=== PATIENT | female | born 1925 | race Caucasian/White ===

== ENCOUNTER 2017-05-11 10:47 | Observation (INO) | payer MEDICARE, OTHER ==
[~2017-05-11] VITALS: Ht 149.9 cm; Wt 93.5 kg
[~2017-05-11 10:47] MED LIST: ALENDRONATE70 MG PO; AMLODIPINE BESYL5 MG PO; ASPIRIN EC81 MG PO; BL VIT B-12500 MCG PO; BUMETANIDE1 MG PO; CALCIUM PO; CIPROFLOXACN500 MG PO; CLEOCIN150 MG PO; COUMADIN2 MG PO; DIGOXIN0.125 MG PO; DOXYCYC MONO100 M2 PO; ELIQUIS2.5 MG PO; ENALAPRIL5 MG PO; ENOXAPARIN40 MG/0.1 SC; FENOFIBRATE54 MG PO; GLIPIZIDE ER2.5 MG PO; GLIPIZIDE ER5 MG PO; GLIPIZIDE5 MG PO; LEVAQUIN500 MG PO; LISINOPRIL10 MG PO; LISINOPRIL20 M1 PO; LISINOPRIL20 MG PO; LOMOTIL2.5 MG PO; LOPRESSOR25 MG PO; METOPROL TAR25 MG PO; METOPROL TAR50 MG PO; MULTI-VITAMIN GUMMIE PO; NORCO1 TA1 PO; PANTOPRAZOLE SO40 MG PO; PRAVASTATIN SOD20 MG PO; PRAVASTATIN20 MG PO; PREDNISONE20 MG PO; PREDNISONE5 MG PO; PROAIR HFA IN; PROTONIX40 M2 PO; ULTRAM50 M1 PO; VENTOLIN HFA IN; WARFARIN1 MG PO; WARFARIN2 MG PO; XALATAN 0.005%2.5 ML OU; ZITHROMAX250 MG PO; ZOFRAN ODT4 MG PO; ZPAK PO
--- NOTE | 2017-05-11 11:06 | NUR ---
PT TO ROOM 14 VIA WC.
[2017-05-11 11:48] LABS: HEMATOCRIT 34.4 % (37.0-47.0); HEMOGLOBIN 10.3 g/dl (12.0-16.0); IMMATURE GRANULOCYTES 0.6 % (0.0-1.0); MEAN CELL VOLUME 77.8 fL CALC (80.0-100.0); MEAN CORPUSCULAR HGB 23.3 pG CALC (26.0-32.0); MEAN CORPUSCULAR HGB CONC 29.9 g/L CALC (32.0-36.0); NEUT# 7.63 thou/uL (2.00-7.15); RED BLOOD COUNT 4.42 mill/uL (4.20-5.60); RED CELL DISTRI WIDTH 18.8 % (11.5-15.5)
--- NOTE | 2017-05-11 12:00 | NUR ---
IV FLUIDS VIA IV SITE HEALTHY ADVISED OF WAIT TIME FOR TEST RESULTS
[2017-05-11] MEDS ORDERED: DIGOXIN0.125 MG PO (12:01)
[2017-05-11 12:05] LABS: ALBUMIN 4.3 g/dL (3.2-5.0); ALKALINE PHOSPHATASE 97 u/l (38-126); AMYLASE < 30 u/l (30-110); ANION GAP 19 (6-22 (CALC)); BILIRUBIN, TOTAL 0.6 mg/dL (0.0-1.4); BUN 18 mg/dL (8-23); BUN/CREATININE RATIO 23 (12-20 (CALC)); CALCIUM 9.8 mg/dL (8.4-10.2); CARBON DIOXIDE 30 mmol/l (22-30); CHLORIDE 95 mmol/l (95-108); CREATININE 0.8 mg/dL (0.5-1.0); GFR > 60 ML/MIN (>=60 (CALC)); GFR FOR AFR.AMER. > 60 ML/MIN (>=60 (CALC)); GLUCOSE 102 mg/dL (82-115); LIPASE 37 u/l (23-300); POTASSIUM 4.3 mmol/l (3.5-5.1); SGOT/AST 22 u/l (9-36); SGPT/ALT 19 u/l (11-66); SODIUM 139 mmol/l (137-146)
[2017-05-11 12:17] LABS: MYOGLOBIN 138 ng/mL (0 - 62)
--- NOTE | 2017-05-11 13:00 | NUR ---
IV FLUIDS COMPLETED NO N/V IV SITE HEALTHY CALL LIGHT PROVIDED
--- NOTE | 2017-05-11 13:34 | NUR ---
SBAR PRINTED TO FLOOR
--- NOTE | 2017-05-11 13:35 | NUR ---
PT TO ROOM 2 AWAITING ADMIT TO [facility]. FAMILY AT BEDSIDE PT IS STABLE IV SITE HEALTHY.
--- NOTE | 2017-05-11 14:15 | NUR ---
REPORT PROVIDED TO DAYTON SEN. PT TO MEDSUR IN STABLE CONDITION. IV SITE HEALTHY. BP 174/83 DAYTON SEN ADVISED PT HAD NOT TAKEN AM BP MED DUE TO NAUSEA.
--- NOTE | 2017-05-11 15:00 | NUR ---
PT.ARRIVED TO FLOOR ACCOMPANIED BY ED NURSE VIA STRETCHER. V/S ARE BEING ASSESSED. B/P IS ELEVATED, WILL ASK FOR ORDER FOR BP MED. PT.IS BEING ORIENTED TO ROOM,CALL SYSTEM, LIGHTS. SON IS AT BEDSIDE. CALL LIGHT IS W/IN PT.REACH AND SHE HAS BEEN INSTRUCTED TO CALL IF ANY NEEDS ARISE
[2017-05-11 16:20] VITALS: BP 174/85
--- NOTE | 2017-05-11 16:40 | NUR ---
PT.MEDICATED ORDERS PROVIDE. IV FLUIDS ARE RUNNING AT THIS TIME. PT.DENIES ANY OTHER NEEDS. CALL LIGHT AT SIDE, BED IN LOWEST POSITION
[2017-05-11 16:50] VITALS: BP 159/86
[2017-05-11 19:20] VITALS: BP 142/60
--- NOTE | 2017-05-11 20:43 | NUR ---
X2 VISITORS IN PT ROOM, PT IS A/O X2, VERY PLEASANT AND TALKACTIVE, DENIES PAIN, ASSISTED TO BSC, HAD A SMALL BM, LOOSE, WILHELM BROWN SOFT, ON 3LPM O2 VIA NC, OXYGEN DEPENDENT AT HOME AT 3LPM, SLOW STEADY GAIT NOTED, RESP EVEN AND UNLABORED, NS AT 80 ML/HR INFUSING WITHOU DIFFICULTY, EXPLAINED MED SCHEDULE AND PLAN OF CARE, SAFETY MEASURES REINFORCED, VOICES UNDERSTANDING, IV SITE IF FREE OF S/S OF INFILTRATION NO PAIN TO TOUCH, CALL ENRIQUEZ, BS, BST, FRESH WATER WITHIN REACH. WILL MONITOR CLOSELY.
--- NOTE | 2017-05-11 22:13 | NUR ---
FINGER STICK ACCU 80, PROVIDED A SNACK, ATE 100%, DENIES NEEDS, RESTING IN BED QUIETLY, AROUSES TO ANY STIMULI, NO N/V REPORTED OR PAIN. WILL MONITOR CLOSELY.
[2017-05-11 23:14] LABS: URINE BILIRUBIN - DIPSTICK NEGATIVE (NEGATIVE); URINE BLOOD DIPSTICK NEGATIVE (NEGATIVE); URINE COLOR YELLOW; URINE GLUCOSE - DIPSTICK NEGATIVE (NEGATIVE); URINE KETONE 15 mg/dL (NEGATIVE); URINE LEUK ESTERASE NEGATIVE (NEGATIVE); URINE NITRITE - DIPSTICK NEGATIVE (Negative); URINE PROTEIN - DIPSTICK NEGATIVE (NEG-TRACE); URINE UROBILINOGEN - DIPSTICK 0.2 E.U./dL (0.2)
[2017-05-11 23:15] LABS: URINE CLARITY CLEAR
[2017-05-11 23:50] VITALS: BP 155/92
[2017-05-12] VITALS (7 sets, daily range): BP systolic 139–170; BP diastolic 69–94
--- NOTE | 2017-05-12 00:15 | NUR ---
PT APPEARS TO BE SLEEPING WITH EYES CLOSED, AROUSES TO ANY STIMULI, RESP ARE EVEN AND UNLABORED ON 3LPM OF OXYGEN, DENIES NEEDS OR PAIN, ORAL HYDRATION PROVIDED, NO N/V NOTED, IVF INFUSING TO PATENT IV SITE, FREE OF S/S OF INFILTRATION, VSS, AFEBRILE, TELE IN PLACE, SAFETY MEASURES REINFORCED, WILL CONTINUE TO MONITOR CLOSELY.
--- NOTE | 2017-05-12 04:47 | NUR ---
A-FIB 64 ON MONITOR PER ER MONITORING, VSS, RESP ARE EVEN AND UNLABORED ON 3LPM O2 VIA NC, DENIES ABDOMINAL PAIN OR OTHER DISCOMFORT, NO BM'S NOTED, OFFERED DIGITAL ARCHIVIST TO BSC, DENIES NEEDS, NS INFUSING WITHOUT PROBLEM, IV IS PATENT, ENCOURAGED TO CALL IF NEEDED, CALL ENRIQUEZ AT REACH.
--- NOTE | 2017-05-12 05:25 | NUR ---
PT C/O NAUSEA, NO ORDERS FOR ZOFRAN, WILL NOTIFY DR. LADD, MANUAL BP 170/72 WILL MEDICATE WITH APRESOLINE PER EMAR ORDERS.
--- NOTE | 2017-05-12 06:45 | NUR ---
MEDICATED PT FOR NAUSEAS, STATES "I FEEL SICK TO MY STOMACH." NOW C/O LEFT SHOULDER PAIN, MOANING AND GUARDING NOTED, STATES "IT HURTS SO BAD." NO ORDERS FOR PAIN, WILL NOTIFY DR. LADD. WILL CONTINUE TO REASSESS.
--- NOTE | 2017-05-12 06:50 | NUR ---
NOTIFIED DR LADD OF NEED FOR PAIN MED, PT GUARDING AND MOANING AT THIS TIME, LEFT SHOULDER PAIN, RATES IT AT 12/21, FACIAL GRIMACE NOTED.
--- NOTE | 2017-05-12 07:00 | NUR ---
REPORT RECEIVED FROM DAYTON MORRISON; PT AROUSED EASILY TO VERBAL STIMULI; PT C/O SHOULDER WILL MEDICATE; CALL ENRIQUEZ WITHIN REACH; WILL CONTINUE TO MONITOR.
--- NOTE | 2017-05-12 08:00 | NUR ---
PT TOLERATING BREAKFAST WELL; MEDICATED ORDERED FOR C/O LT SHOULDER PAIN 12/21; IVF INFUSING WITHOUT DIFFICULTY; TELE MONITOR IN PLACE; CALL ENRIQUEZ WITHIN REACH; WILL CONTINUE TO MONITOR.
--- NOTE | 2017-05-12 11:00 | NUR ---
FAMILY IN TO VISIT PT
--- NOTE | 2017-05-12 12:00 | NUR ---
DR. LADD IN TO SEE PT; PLAN OF CARE DISCUSSED
[2017-05-12 12:02] LABS: HEMATOCRIT 31.5 % (37.0-47.0); HEMOGLOBIN 9.4 g/dl (12.0-16.0); IMMATURE GRANULOCYTES 0.8 % (0.0-1.0); MEAN CELL VOLUME 77.8 fL CALC (80.0-100.0); MEAN CORPUSCULAR HGB 23.2 pG CALC (26.0-32.0); MEAN CORPUSCULAR HGB CONC 29.8 g/L CALC (32.0-36.0); NEUT# 6.62 thou/uL (2.00-7.15); RED BLOOD COUNT 4.05 mill/uL (4.20-5.60); RED CELL DISTRI WIDTH 18.6 % (11.5-15.5)
[2017-05-12 12:22] LABS: ANION GAP 14 (6-22 (CALC)); BUN 13 mg/dL (8-23); BUN/CREATININE RATIO 21 (12-20 (CALC)); CALCIUM 8.7 mg/dL (8.4-10.2); CARBON DIOXIDE 27 mmol/l (22-30); CHLORIDE 98 mmol/l (95-108); CREATININE 0.6 mg/dL (0.5-1.0); GFR > 60 ML/MIN (>=60 (CALC)); GFR FOR AFR.AMER. > 60 ML/MIN (>=60 (CALC)); GLUCOSE 80 mg/dL (82-115); POTASSIUM 3.6 mmol/l (3.5-5.1); SODIUM 135 mmol/l (137-146)
--- NOTE | 2017-05-12 13:22 | NUR ---
SPOKE WITH PATIENT REGARDING MEDICATIONS, SHE KNEW WHAT HER MEDICATIONS WERE FOR WITH THE EXCEPTION OF LISINOPRIL. I LEFT THE PATIENT WITH A LIST OF SHANTAL MEDICATIONS ALONG WITH THEIR PURPOSE WRITTEN BESIDE EACH MEDICATION. I TOLD THE PATIENT TO ALERT HER NURSE IF SHE HAD ANY MORE QUESTIONS FOR THE PHARMACY DEPARTMENT.
--- NOTE | 2017-05-12 14:00 | NUR ---
PT UP A/O X3; NO COMPLAINTS VOICED AT THIS TIME; CALL ENRIQUEZ WITHIN REACH; WILL CONTINUE TO MONITOR.
--- NOTE | 2017-05-12 16:43 | NUR ---
PT MEDICATED ORDERED FOR C/O LEFT SHOULDER PAIN 11/20; NO OTHER COMPLAINTS VOICED; CALL ENRIQUEZ WITHIN REACH; WILL CONTINUE TO MONITOR.
--- NOTE | 2017-05-12 17:29 | NUR ---
ACCU CHECK 65; PT ASYMPTOMATIC; VISITING WITH FAMILY; DENIES PAIN OR DISCOMFORT; CALL ENRIQUEZ WITHIN REACH; WILL CONTINUE TO MONITOR.
--- NOTE | 2017-05-12 19:00 | NUR ---
RECEIVED CHANGE OF SHIFT REPORT FROM DAYTON COOPER. PATIENT LYING IN BED AND APPEARS NOT TO BE IN ANY APPARENT ACUTE DISTRESS OR DISCOMFORT. WILL CONTINUE TO MONITOR.
[2017-05-13] VITALS: BP 161/81
--- NOTE | 2017-05-13 | NUR ---
PT RESTING QUIETLY AND APPEARS NOT TO BE IN ANY DISCOMFORT. NO APPARENT ACUTES DISTRESS NOTED.
--- NOTE | 2017-05-13 04:00 | NUR ---
NIO APPARENT ACUTE CHANGES NOTED IN PT'S CONDITION AT THIS TIME.
[2017-05-13 05:00] VITALS: BP 171/85
--- NOTE | 2017-05-13 07:00 | NUR ---
REPORT RECEIVED FROM DAYTON DE SOUZA; PT IN SUPINE POSITION; C/O NAUSEA; WILL MEDICATE; CALL ENRIQUEZ WITHIN REACH; WILL CONTINUE TO MONITOR.
--- NOTE | 2017-05-13 07:30 | NUR ---
PT MEDICATED FOR C/O NAUSEA; ASSISTED TO RECLINER AND ASSISTED WITH BREAKFAST SET UP; IVF INFUSING WELL; CALL ENRIQUEZ WITHIN REACH; WILL CONTINUE TO MONITOR.
[2017-05-13 08:10] VITALS: BP 150/73
[2017-05-13] MEDS ORDERED: ZOFRAN ODT4 MG PO (09:32)
[2017-05-13] MEDS ORDERED: ZPAK PO (09:33)
[2017-05-13 11:26] VITALS: BP 158/73
--- NOTE | 2017-05-13 11:45 | NUR ---
DR. LADD IN TO SEE PT; PLAN OF CARE DISCUSSED
--- NOTE | 2017-05-13 13:53 | NUR ---
PT IN SEMI FOWLERS POSITION; NO COMPLAINTS VOICED AT THIS TIME; IVF INFUSING WELL; CALL ENRIQUEZ WITHIN REACH; WILL CONTINUE TO MONITOR
--- NOTE | 2017-05-13 15:01 | NUR ---
PT WITH MULTIPLE VISITORS IN ROOM; WILL CONTINUE TO MONITOR.
[2017-05-13 15:24] VITALS: BP 164/78
--- NOTE | 2017-05-13 17:30 | NUR ---
PT MOVED VIA WC TO ROOM 273; ASSISTED WITH DINNER SET UP; IVF INFUSING WITHOUT DIFFICULTY; CALL ENRIQUEZ WITHIN REACH; WILL CONTINUE TO MONITOR.
[2017-05-13 18:00] VITALS: BP 169/94
--- NOTE | 2017-05-13 19:30 | NUR ---
BEDSIDE REPORT RECEIVED FROM DAYTON COOPER. PT SITTING UP IN BED WATCHING TV IN NO DISTRESS. DENIES PAIN CURRENTY. RESPIRATIONS EVEN AND UNLABORED ON OXYGEN. PLAN OF CARE DICUSSED. PT ENCOURAGED TO VERBALIZE CONCERNS. STATES UNDERSTANDING. HAS HAD 2 LOOSE BMS SINCE SHIFT CHANGE R/T NO ANAL SPHINCTER. HYGIENE PERFORMED. CALL LIGHT WITHIN REACH.
[2017-05-14] VITALS (9 sets, daily range): BP systolic 145–172; BP diastolic 74–95
--- NOTE | 2017-05-14 02:50 | NUR ---
ER FULL STACK DEVELOPER NOTIFIED NURSE THAT PTS HEART RATE WAS ELEVATED INTO THE 130S AND 140S. UPON INSPECTION PT WAS SITTING ON THE EDGE OF THE BED AFTER SELF TRANSFERING FROM BSC TO BED. PT WAS SLIGHTLY SOB WITH EXERTION AND OXYGEN IN PLACE; OTHERWISE ASYMPTOMATIC. STAT EKG ORDERED; AFIB 91 WHICH HAS BEEN HER BASELINE. FULL STACK DEVELOPER STATES THAT PTS PULSE WENT HIGH 177 BPM, BUT IS NOW IN THE 90S; SHE DID NOT MAINTAIN ELEVATED HR. BLOOD PRESSURE AT THIS TIME WAS 164/95. PT DENIES CHEST PAIN OR ANY CHANGES. NOW RESTING COMFORTABLY IN BED. WILL CONTINUE TO MONITOR.
[2017-05-14 05:36] LABS: HEMATOCRIT 32.3 % (37.0-47.0); HEMOGLOBIN 9.8 g/dl (12.0-16.0); IMMATURE GRANULOCYTES 1.6 % (0.0-1.0); MEAN CELL VOLUME 76.7 fL CALC (80.0-100.0); MEAN CORPUSCULAR HGB 23.3 pG CALC (26.0-32.0); MEAN CORPUSCULAR HGB CONC 30.3 g/L CALC (32.0-36.0); NEUT# 5.36 thou/uL (2.00-7.15); RED BLOOD COUNT 4.21 mill/uL (4.20-5.60); RED CELL DISTRI WIDTH 18.9 % (11.5-15.5)
[2017-05-14 05:55] LABS: ANION GAP 14 (6-22 (CALC)); BUN 8 mg/dL (8-23); BUN/CREATININE RATIO 12 (12-20 (CALC)); CALCIUM 9.2 mg/dL (8.4-10.2); CARBON DIOXIDE 27 mmol/l (22-30); CHLORIDE 100 mmol/l (95-108); CREATININE 0.6 mg/dL (0.5-1.0); GFR > 60 ML/MIN (>=60 (CALC)); GFR FOR AFR.AMER. > 60 ML/MIN (>=60 (CALC)); GLUCOSE 118 mg/dL (82-115); POTASSIUM 3.9 mmol/l (3.5-5.1); SODIUM 138 mmol/l (137-146)
--- NOTE | 2017-05-14 06:17 | NUR ---
PT SELF TRANSFERED HERSELF ONTO BSC FOR BM AND BACK TO BED. NO SIGNIFICANT INCREASE IN HEART RATE; TOLERATED EXERTION WELL.
--- NOTE | 2017-05-14 07:00 | NUR ---
RECEIVED BEDSIDE REPORT FROM SHREYA ROWLEY. RESTING IN SEMI FOWLERS WITH EYES CLOSED, AWAKENS EASILY RESPS EVEN AND UNLABORED ON O2 VIA NC, TELE MONITOR IN PLACE. #22 RFA INFUSING WITHOUT DIFFICULTY, SITE APPEARS HEALTHY. DENIES PAIN OR DISCOMFORT. PLAN OF CRAE DISCUSSED. SAFETY PRECAUTIONS REINFORCED. BED IN LOWEST POSITION WITH WHEELS LOCKED. CALL LIGHT WITHIN REACH. ENCOURAGED PT TO CALL FOR ANY NEEDS.
--- NOTE | 2017-05-14 11:50 | NUR ---
SITTING IN HIGH FOWLERS EATING LUNCH. RESPS EVEN AND UNLABORED ON O2 VIA NC, TELE MONITOR IN PLACE. DENIES PAIN OR DISCOMFORT. CALL LIGHT WITHIN REACH. DR LADD IN TO SEE PT, NEW ORDERS RECEIVED. WILL CONTINUE TO MONITOR.
--- NOTE | 2017-05-14 15:45 | NUR ---
IN SEMI FOWLERS, RESPS EVEN AND UNLABORED ON O2 VIA NC, TELE MONITOR IN PLACE. VISITORS AT BEDSIDE. MEDICATED WITH HYDRALAZINE 10MG IVP FOR BP 171/77. #22 RFA INFUSING WITHOUT DIFFICULTY, SITE APPEARS HEALTHY. CALL LIGHT WITHIN REACH. WILL CONTINUE TO MONITOR.
--- NOTE | 2017-05-14 19:00 | NUR ---
RECEIVED CHANGE OF SHIFT REPORT FROM DAYTON FUNES. PATIENT ALERT AND ORIENTED X 3. PT UP TO RECLINER CHAIR. NO VOICED COMPLAINTS.
--- NOTE | 2017-05-15 | NUR ---
PATIENT RESTING QUIETLY AT THIS TIME. NO APPARENT ACUTE DISTRESS OR VOICED COMPLAINTS. WILL CONTINUE TO MONITOR.
[2017-05-15 00:10] VITALS: BP 140/65
[2017-05-15 03:32] VITALS: BP 125/65
--- NOTE | 2017-05-15 04:00 | NUR ---
NO APPARENT ACUTE CHANGES NOTED IN PT'S CONDITION AT THIS TIME.
--- NOTE | 2017-05-15 07:00 | NUR ---
RECEIVED BEDSIDE REPORT FROM AP BURRIS. RESTING IN SEMI FOWLERS, RESPS EVEN AND UNLABORED ON O2 VIA NC, TELE MONITOR IN PLACE. #22 RFA INFUSING WITHOUT DIFFICULTY, SITE APPEARS HEALTHY. DENIES PAIN OR DISCOMFORT. PLAN OF CARE DISCUSSED. SAFETY PRECAUTIONS REINFORCED. BED IN LOWEST POSITION WITH WHEELS LOCKED. CALL LIGHT WITHIN REACH. ENCOURAGED PT TO CALL FOR ANY NEEDS.
[2017-05-15 07:16] VITALS: BP 166/77
--- NOTE | 2017-05-15 10:40 | NUR ---
PHYSICAL THERAPY IN WITH PT.
[2017-05-15 10:54] VITALS: BP 160/72
[2017-05-15] MEDS ORDERED: AMLODIPINE BESYL5 MG PO (11:04)
--- NOTE | 2017-05-15 11:40 | NUR ---
DR LOPEZ IN WITH PT, NEW ORDERS RECEIVED.
--- NOTE | 2017-05-15 12:45 | NUR ---
Discharge instructions given. Patient verbalizes understanding of same. Discharged in stable condition via Wheelchair to Home with family. All belongings sent with pt.
== END 2017-05-15 12:45 | disposition home health service (06) ==
LOC: ED 10:47 → ED-I 12:14 → ED 13:30 → MS2 13:31
PROVIDERS: Emergency Medicine; Internal Medicine; ADMIT Internal Medicine; ATTEND Internal Medicine
DX: E86.0 Dehydration (principal); E11.9 Type 2 diabetes mellitus without complications; I10 Essential (primary) hypertension; J40 Bronchitis, not specified as acute or chronic; I25.10 Atherosclerotic heart disease of native coronary artery without angina pectoris; I25.5 Ischemic cardiomyopathy; K52.9 Noninfective gastroenteritis and colitis, unspecified; I48.2 Chronic atrial fibrillation; E78.5 Hyperlipidemia, unspecified; R11.2 Nausea with vomiting, unspecified; R53.1 Weakness; Z79.84 Long term (current) use of oral hypoglycemic drugs; Z85.038 Personal history of other malignant neoplasm of large intestine; Z85.42 Personal history of malignant neoplasm of other parts of uterus; Z98.2 Presence of cerebrospinal fluid drainage device
CPT/HCPCS: J1650

== ENCOUNTER 2017-07-17 16:19 | Observation (INO) | payer MEDICARE, OTHER ==
[~2017-07-17] VITALS: Ht 152.4 cm; Wt 44.0 kg
[2017-07-17 16:40] VITALS: BP 165/71
[2017-07-17 17:11] LABS: HEMATOCRIT 32.4 % (37.0-47.0); HEMOGLOBIN 9.5 g/dl (12.0-16.0); IMMATURE GRANULOCYTES 0.6 % (0.0-1.0); MEAN CELL VOLUME 76.8 fL CALC (80.0-100.0); MEAN CORPUSCULAR HGB 22.5 pG CALC (26.0-32.0); MEAN CORPUSCULAR HGB CONC 29.3 g/L CALC (32.0-36.0); NEUT# 6.67 thou/uL (2.00-7.15); RED BLOOD COUNT 4.22 mill/uL (4.20-5.60); RED CELL DISTRI WIDTH 17.4 % (11.5-15.5)
[2017-07-17 17:16] LABS: ALKALINE PHOSPHATASE 116 u/l (38-126); ANION GAP 16 (6-22 (CALC)); BILIRUBIN, TOTAL 0.5 mg/dL (0.0-1.4); BUN 17 mg/dL (8-23); BUN/CREATININE RATIO 22 (12-20 (CALC)); CARBON DIOXIDE 29 mmol/l (22-30); CHLORIDE 98 mmol/l (95-108); CREATININE 0.8 mg/dL (0.5-1.0); GFR > 60 ML/MIN (>=60 (CALC)); GFR FOR AFR.AMER. > 60 ML/MIN (>=60 (CALC)); POTASSIUM 3.8 mmol/l (3.5-5.1); SGOT/AST 18 u/l (9-36); SGPT/ALT 37 u/l (11-66); SODIUM 140 mmol/l (137-146); TOTAL PROTEIN 6.9 g/dL (6.3-8.2)
[2017-07-17 19:54] VITALS: BP 181/82
[2017-07-17 20:40] VITALS: BP 135/70
[2017-07-17 23:34] VITALS: BP 141/77
[2017-07-18 04:44] VITALS: BP 138/77
[2017-07-18 07:01] LABS: HEMATOCRIT 28.5 % (37.0-47.0); HEMOGLOBIN 8.6 g/dl (12.0-16.0); MEAN CELL VOLUME 75.6 fL CALC (80.0-100.0); MEAN CORPUSCULAR HGB 22.8 pG CALC (26.0-32.0); MEAN CORPUSCULAR HGB CONC 30.2 g/L CALC (32.0-36.0); RED BLOOD COUNT 3.77 mill/uL (4.20-5.60); RED CELL DISTRI WIDTH 17.2 % (11.5-15.5)
[2017-07-18 07:42] VITALS: BP 158/69
[2017-07-18 11:00] VITALS: BP 162/71
[2017-07-18] MEDS ORDERED: [UNRECOGNIZED DRUG - OTHER] PO ×2 (14:51)
[2017-07-18] MEDS ORDERED: MUCINEX ALLERG180 MG (14:53)
[2017-07-18] MEDS ORDERED: ROBITUSSIN200 MG/10 (14:54)
[2017-07-18 16:00] VITALS: BP 147/80
== END 2017-07-18 18:30 | disposition home health service (06) ==
LOC: MS2 16:19
PROVIDERS: ADMIT Internal Medicine; ATTEND Internal Medicine
DX: D50.9 Iron deficiency anemia, unspecified (principal); E86.0 Dehydration; J96.11 Chronic respiratory failure with hypoxia; I25.10 Atherosclerotic heart disease of native coronary artery without angina pectoris; I25.5 Ischemic cardiomyopathy; I11.0 Hypertensive heart disease with heart failure; I50.22 Chronic systolic (congestive) heart failure; I48.2 Chronic atrial fibrillation; J44.9 Chronic obstructive pulmonary disease, unspecified; E11.9 Type 2 diabetes mellitus without complications; E78.5 Hyperlipidemia, unspecified; R11.2 Nausea with vomiting, unspecified; M54.9 Dorsalgia, unspecified; Z85.038 Personal history of other malignant neoplasm of large intestine; Z99.81 Dependence on supplemental oxygen; Z85.41 Personal history of malignant neoplasm of cervix uteri; Z98.2 Presence of cerebrospinal fluid drainage device; Z86.73 Personal history of transient ischemic attack (TIA), and cerebral infarction without residual deficits; Z87.01 Personal history of pneumonia (recurrent)
CPT/HCPCS: Q0138

== ENCOUNTER 2017-07-27 11:40 | Observation (INO) | payer MEDICARE, OTHER ==
[~2017-07-27] VITALS: Ht 152.4 cm; Wt 43.4 kg
[~2017-07-27 11:40] MED LIST changes: +MUCINEX ALLERG180 MG; +ROBITUSSIN200 MG/10; +[UNRECOGNIZED DRUG - OTHER] PO
--- NOTE | 2017-07-27 12:00 | NUR ---
PT ARRIVED VIA WC ACCOMPANIED BY STAFF AND FAMILY.
[2017-07-27 12:34] LABS: HEMATOCRIT 35.8 % (37.0-47.0); HEMOGLOBIN 10.6 g/dl (12.0-16.0); IMMATURE GRANULOCYTES 0.4 % (0.0-1.0); MEAN CELL VOLUME 81.2 fL CALC (80.0-100.0); MEAN CORPUSCULAR HGB CONC 29.6 g/L CALC (32.0-36.0); NEUT# 3.93 thou/uL (2.00-7.15); RED BLOOD COUNT 4.41 mill/uL (4.20-5.60); RED CELL DISTRI WIDTH 21.4 % (11.5-15.5)
[2017-07-27 12:54] LABS: ANION GAP 17 (6-22 (CALC)); BUN 11 mg/dL (8-23); BUN/CREATININE RATIO 14 (12-20 (CALC)); CARBON DIOXIDE 30 mmol/l (22-30); CHLORIDE 99 mmol/l (95-108); CREATININE 0.8 mg/dL (0.5-1.0); GFR > 60 ML/MIN (>=60 (CALC)); GFR FOR AFR.AMER. > 60 ML/MIN (>=60 (CALC)); POTASSIUM 3.6 mmol/l (3.5-5.1); SODIUM 143 mmol/l (137-146)
[2017-07-27 13:05] VITALS: BP 168/80
--- NOTE | 2017-07-27 13:15 | NUR ---
ASSESSMENT IS COMPLETED: IV SITE STARTED BY TRISTEN BURRIS, AFTER 2 ATTEMPTS WERE MADE. HR IS REG,PULSES ARE STRONG X4, ABD IS SOFT WITH ACTIVE BS. BREATH SOUNDS ARE CLEAR, BILATERALLY, CONTINUE TO OSBERVE AND MONITOR.
[2017-07-27 14:00] LABS: URINE BILIRUBIN - DIPSTICK NEGATIVE (NEGATIVE); URINE BLOOD DIPSTICK TRACE-INTACT (NEGATIVE); URINE COLOR YELLOW; URINE GLUCOSE - DIPSTICK NEGATIVE (NEGATIVE); URINE KETONE NEGATIVE (NEGATIVE); URINE LEUK ESTERASE NEGATIVE (NEGATIVE); URINE NITRITE - DIPSTICK NEGATIVE (Negative); URINE PROTEIN - DIPSTICK 30 mg/dL (NEG-TRACE); URINE UROBILINOGEN - DIPSTICK 0.2 E.U./dL (0.2)
[2017-07-27 14:02] LABS: URINE CLARITY SL CLOUDY; URINE MUCUS FEW hpf (NONE-FEW); URINE RBC 0-2 RBC/hpf (0-5)
[2017-07-27 14:03] LABS: URINE HYALINE CAST FEW lpf (NONE-RARE)
--- NOTE | 2017-07-27 15:27 | NUR ---
PT IS RESTING WITH EYES CLOSED NO DISTRESS NOTED. IV SITE IS INTACT. TELE NONITOR IN PLACE.
[2017-07-27 16:00] VITALS: BP 163/83
[2017-07-27] MEDS ORDERED: REFRESH1 % OU (16:26)
--- NOTE | 2017-07-27 16:40 | NUR ---
IN TO VISIT WITH PT.
--- NOTE | 2017-07-27 19:30 | NUR ---
REPORT RECIEVED; PT WOKE TO SPEECH. RESP EVEN AND UNLABORED WITH O2 IN PLACE. PT DENIES PAIN OR DISCOMFORT. PT ENCOURAGED TO CALL FOR ASSISTANCE. SAFETY PRECAUTIONS REINFORCED. FREQUENT ROUNDS MADE. CALL LIGHT WITHIN REACH.
[2017-07-27 21:22] VITALS: BP 163/86
[2017-07-28] VITALS (9 sets, daily range): BP systolic 150–172; BP diastolic 73–90
--- NOTE | 2017-07-28 00:10 | NUR ---
PT DENIES PAIN OR DISCOMFORT. RESP EVEN AND UNLABORED; NO DISTRESS NOTED. TELE IN PLACE. SAFETY PRECAUTIONS REINFORCED. CALL LIGHT WITHIN REACH.
--- NOTE | 2017-07-28 02:12 | NUR ---
DR NOTIFIED OF BP 172/85, HR; 84. NEW ORDER RECIEVED
--- NOTE | 2017-07-28 04:10 | NUR ---
RESP EVEN AND UNLABORED; NO DISTRESS NOTED. TELE IN PLACE. CALL LIGHT WITHIN REACH.
[2017-07-28 05:51] LABS: ALKALINE PHOSPHATASE 94 u/l (38-126); ANION GAP 14 (6-22 (CALC)); BILIRUBIN, TOTAL 0.5 mg/dL (0.0-1.4); BUN 15 mg/dL (8-23); BUN/CREATININE RATIO 18 (12-20 (CALC)); CARBON DIOXIDE 32 mmol/l (22-30); CHLORIDE 99 mmol/l (95-108); CREATININE 0.8 mg/dL (0.5-1.0); GFR > 60 ML/MIN (>=60 (CALC)); GFR FOR AFR.AMER. > 60 ML/MIN (>=60 (CALC)); POTASSIUM 3.6 mmol/l (3.5-5.1); SGOT/AST 14 u/l (9-36); SGPT/ALT 19 u/l (11-66); SODIUM 141 mmol/l (137-146)
[2017-07-28 05:56] LABS: ALBUMIN 3.1 g/dL (3.2-5.0); TOTAL PROTEIN 5.5 g/dL (6.3-8.2)
--- NOTE | 2017-07-28 07:38 | NUR ---
ASSESSMENT IS COMPLETED: IV SITE IS FREE FROM REDNESS OR EDEMA. NO DISTRESS NOTED. HR IS AFIB/AFLUTTER. ABD IS SOFT WITH ACTIVE BS. BREATH SOUNDS ARE CLEAR BILATERALLY. CONTINUE TO OBSERVE AND MONITOR.
--- NOTE | 2017-07-28 12:00 | NUR ---
PT IS RELAXING IN BED WITH NO DISTRESS NOTED. IV SITE IS FREE FROM REDNESS OR EDEMA.
--- NOTE | 2017-07-28 16:00 | NUR ---
PT IS RELAXING IN BED WITH NO DISTRESS NOTED. IV SITE IS FREE FROM REDNESS OR EDEMA. CONTINUE TO OSBERVE AND MONITOR.
--- NOTE | 2017-07-28 19:30 | NUR ---
REPORT RECIEVED; PT RESTING IN BED. PT DENIES PAIN OR DISCOMFORT. RESP EVEN AND UNLABORED; NO DISTRESS NOTED. SAFETY PRECAUTIONS REINFORCED. FREQUENT ROUNDS MADE; CALL LIGHT WITHIN REACH.
--- NOTE | 2017-07-28 19:50 | NUR ---
PT RESING IN BED; RESP EVEN AND UNLABORED WITH O2 IN PLACE. TELE IN PLACE. ABD SOFT; ACTIVE BOWEL SOUNDS NOTED. PEDAL PULSES PALPATED BILAT. IV RAC PATENT; FLUSHED WITHOUT DIFFICULTY. PT DENIES PAIN OR DISCOMFORT. SAFETY PRECAUTIONS REINFORCED. WILL MONITOR CLOSELY. CALL LIGHT WITHIN REACH.
--- NOTE | 2017-07-29 00:30 | NUR ---
RESP EVEN AND UNLABORED WITH O2 IN PLACE. NO DISTRESS NOTED. TELE IN PLACE. CALL LIGHT WITHIN REACH.
[2017-07-29 01:04] VITALS: BP 153/71
--- NOTE | 2017-07-29 04:30 | NUR ---
PT WOKE FOR VITALS; RESP EVEN AND UNLABORED WITH O2 IN PLACE. PT DENIES PAIN. PT REPOSITIONED FOR COMFORT. TELE IN PLACE. CALL LIGHT WITHIN REACH.
[2017-07-29 05:10] VITALS: BP 157/81
[2017-07-29 05:25] LABS: HEMATOCRIT 33.2 % (37.0-47.0); HEMOGLOBIN 9.8 g/dl (12.0-16.0); MEAN CELL VOLUME 81.8 fL CALC (80.0-100.0); MEAN CORPUSCULAR HGB 24.1 pG CALC (26.0-32.0); MEAN CORPUSCULAR HGB CONC 29.5 g/L CALC (32.0-36.0); RED BLOOD COUNT 4.06 mill/uL (4.20-5.60); RED CELL DISTRI WIDTH 21.2 % (11.5-15.5)
[2017-07-29 05:50] LABS: ANION GAP 15 (6-22 (CALC)); BUN 11 mg/dL (8-23); BUN/CREATININE RATIO 16 (12-20 (CALC)); CARBON DIOXIDE 32 mmol/l (22-30); CHLORIDE 101 mmol/l (95-108); CREATININE 0.7 mg/dL (0.5-1.0); GFR > 60 ML/MIN (>=60 (CALC)); GFR FOR AFR.AMER. > 60 ML/MIN (>=60 (CALC)); MAGNESIUM 1.7 mg/dL (1.6-2.3); POTASSIUM 3.8 mmol/l (3.5-5.1); SODIUM 143 mmol/l (137-146)
--- NOTE | 2017-07-29 07:40 | NUR ---
ASSESSMENT IS COMPLTED: PT HAS BEEN RESTING WITH EYES CLOSED. HR IS IRREGULAR, BREATH SOUNDS ARE CLEAR, BILATERALLY, NO C/O SOB, ABD IS SOFT . IV SITE IS FREE FROM REDNESS OR EDEMA. CONTINUE TO OSBERVE AND MONITOR.
[2017-07-29 08:02] VITALS: BP 150/87
[2017-07-29 11:00] VITALS: BP 168/89
--- NOTE | 2017-07-29 12:00 | NUR ---
IV SITE IS FREE FROM REDNESS OR EDEMA. CONTINUE TO OBSERVE AND MONITOR.
--- NOTE | 2017-07-29 16:00 | NUR ---
PT HAS BEEN RESTING IN BED WITH NO DISTRESS NOTED. IV SITE IS FREE FROM REDNESS OR EDEMA. CONTINUE TO OBSERVE AND MONITOR.
--- NOTE | 2017-07-29 18:04 | NUR ---
IV SITE DISCONTINUED CATHETER INTACT, NO REDNESS OR EDEMA. DISCHARGE INSTRUCTIONS IN THE ROOM. FAMILY IN THE ROOM. PT IS EATING DINNER. CONTINUE TO OSBERVE AND MONITOR.
--- NOTE | 2017-07-29 18:25 | NUR ---
PT WAS TRASNPORTED VIA WC ACCOMPANIED BY STAFF. IV SITE WAS DISCONTINUED CATHETER INTACT. Discharge instructions given. Patient verbalizes understanding of same. Discharged in stable condition via Wheelchair to Home with family. All belongings sent with pt.
== END 2017-07-29 18:45 | disposition home health service (06) ==
LOC: MS2 11:40
PROVIDERS: Nurse Practitioner Family; ADMIT Internal Medicine; ATTEND Internal Medicine
DX: J96.21 Acute and chronic respiratory failure with hypoxia (principal); I25.10 Atherosclerotic heart disease of native coronary artery without angina pectoris; I25.5 Ischemic cardiomyopathy; I11.0 Hypertensive heart disease with heart failure; D50.9 Iron deficiency anemia, unspecified; I50.22 Chronic systolic (congestive) heart failure; E11.9 Type 2 diabetes mellitus without complications; I48.91 Unspecified atrial fibrillation; J45.909 Unspecified asthma, uncomplicated; Z85.038 Personal history of other malignant neoplasm of large intestine; Z85.41 Personal history of malignant neoplasm of cervix uteri; Z98.2 Presence of cerebrospinal fluid drainage device; Z79.84 Long term (current) use of oral hypoglycemic drugs; Z99.81 Dependence on supplemental oxygen